=== PATIENT | female | born 1960 | race Caucasian/White ===

== ENCOUNTER 2018-01-05 00:13 | Outpatient (CLI) | payer MEDICARE, SELFPAY ==
--- NOTE | 2018-01-05 13:15 | DI.MAMMO_ITS ---
SYMPTOM/DIAGNOSIS: SCREENING, PREVENTATIVE HEALTH CARE.Z00.00 MAMMOGRAMS: Mammograms were interpreted according to the usual protocol including computer analysis with CAD system, tomosynthesis and C view imaging. Comparison is made with prior examinations. Breast density, category B. No masses or microcalcifications are seen. There is nothing to suggest malignancy. IMPRESSION: Negative mammogram. Routine screening is recommended. Category 1B. MQSA ASSESSMENT OF FINDINGS: Negative. Category 1. Patient will receive a letter notifying them of these results. BI-RADS category B. There are scattered areas of fibroglandular density.
== END 2018-01-05 00:33 ==
PROVIDERS: PCP Nurse Practitioner Family; Visit Provider Nurse Practitioner Family
DX: Z12.31 Encounter for screening mammogram for malignant neoplasm of breast (principal)
CPT/HCPCS: 77063; 77067

== ENCOUNTER 2018-07-29 09:50 | Outpatient (CLI) | payer MEDICARE, SELFPAY ==
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
[2018-07-29 11:51] LABS: Abs Immature Grans 0.01 k/cumm (0.0-0.09); Absolute Basophil Count 0.03 k/cumm (0.0-0.2); Absolute Lymphocyte Count 1.31 k/cumm (1.2-3.4); Absolute Monocyte Count 0.38 k/cumm (0.11-0.7); Absolute Neutrophil Count 2.08 k/cumm (1.2-6.7); Basophils % 0.7; HCT 37.8 % (36.0-46.0); HGB 12.2 g/dL (12.0-15.5); Immature Grans % 0.2; Lymphocytes % 32.7; Mean Corp. HGB Concentration 32.3 g/dL (32.0-36.0); Mean Corpuscular Hemoglobin 29.3 pg (27.0-33.0); Mean Corpuscular Volume 90.9 fL (80-95); Mean Platelet Volume 12.4 fL (8.0-11.0); Monocytes % 9.5; Neutrophils % 51.9; Platelet Count 180 x1000/uL (130-400); RBC 4.16 m/cumm (4.00-5.20); RBC Distribution Width 15.9 % (11.7-14.6); White Blood Cell Count 4.01 k/cumm (4.4-10.8)
[2018-07-29 12:13] LABS: ALT 20 U/L (12-78); AST 13 U/L (15-37); Albumin 3.8 g/dL (3.4-5.0); Alkaline Phosphatase 120 U/L (46-116); Anion Gap 5.7 mmol/L (3-11); BUN 17 mg/dL (7-18); Bilirubin, Total 0.4 mg/dL (0.2-1.0); CO2 30.3 mmol/L (21.0-32.0); CREATININE 0.91 mg/dL (0.55-1.02); Calcium 9.6 mg/dL (8.5-10.1); Chloride 105 mmol/L (98-107); Glucose 96 mg/dL (70-100); Potassium 4.1 mmol/L (3.5-5.1); Sodium 141 mmol/L (136-145); TSH (W/Ref FT4) 1.81 uIU/mL (0.358-3.74); Total Protein 6.7 g/dL (6.4-8.2)
== END 2018-07-29 10:10 ==
PROVIDERS: PCP Nurse Practitioner Family; Visit Provider Nurse Practitioner Family
DX: R06.09 Other forms of dyspnea (principal); R05 Cough; M79.671 Pain in right foot; M77.31 Calcaneal spur, right foot; Z87.81 Personal history of (healed) traumatic fracture; E53.8 Deficiency of other specified B group vitamins; R53.83 Other fatigue
CPT/HCPCS: 80053; 71046; 73610; 73630; 84443; 85025

== ENCOUNTER 2018-08-04 01:29 | Outpatient (CLI) | payer MEDICARE, SELFPAY ==
[2018-08-04] MEDS: Inhaler, Assist Device 1 EACH MC (09:00)
[2018-08-04] MEDS: Albuterol HFA 18 GM 200 PUFF INH IH (09:00)
--- NOTE | 2018-08-10 15:01 | PFT_ITS ---
PULMONARY FUNCTION TEST REPORT DATE OF SERVICE: August 04, 2018 REQUESTING PROVIDER: Sancho Taylor DNP, MATT Spirometry shows mild obstructive airways disease with no significant bronchodilator response. Lung volumes show no evidence of restriction. Diffusion capacity normal. Airways resistance elevated. IMPRESSION: Mild obstructive airways disease with no significant bronchodilator response. Clinical correlation recommended. EARLINE/lizeth D/
== END 2018-08-04 01:49 ==
PROVIDERS: PCP Nurse Practitioner Family; Visit Provider Nurse Practitioner Family
DX: R05 Cough (principal); R06.09 Other forms of dyspnea; R07.89 Other chest pain
CPT/HCPCS: 94060; 94150; 94726; 94729

== ENCOUNTER 2018-08-17 15:14 | Emergency (ER) | payer SELFPAY ==
[2018-08-17 15:25] VITALS: BP 191/73; PULSE 56; RESP 18; TEMP 36.6; O2SAT 97
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
[2018-08-17] MEDS: Ondansetron O.D.T. 4 MG TABEF PO (16:12)
[2018-08-17] MEDS: Acetaminophen 325 MG TAB 650 MG PO (16:12)
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
[2018-08-17 17:04] VITALS: BP 164/84; PULSE 52; RESP 16; TEMP 36.8; O2SAT 98
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
== END 2018-08-17 17:15 | disposition home or self-care (01) ==
PROVIDERS: Emergency Provider Nurse Practitioner Family; PCP Nurse Practitioner Family
DX: G44.319 Acute post-traumatic headache, not intractable (principal); S40.012A Contusion of left shoulder, initial encounter; S50.02XA Contusion of left elbow, initial encounter; V47.5XXA Car driver injured in collision with fixed or stationary object in traffic accident, initial encounter
CPT/HCPCS: 99284; 70450

== ENCOUNTER → 2018-12-07 08:31 | Outpatient (BNVA) | payer MEDICARE, SELFPAY | PROVIDERS: PCP Nurse Practitioner Family; Referring Provider Nurse Practitioner Family; Visit Provider Nurse Practitioner Gerontology | DX: R32 Unspecified urinary incontinence (principal); R31.29 Other microscopic hematuria; N32.81 Overactive bladder; I10 Essential (primary) hypertension; J44.9 Chronic obstructive pulmonary disease, unspecified; Z77.22 Contact with and (suspected) exposure to environmental tobacco smoke (acute) (chronic) | CPT/HCPCS: 99204; 99215 ==

== ENCOUNTER 2018-12-30 14:16 | Outpatient (REF) | payer MEDICARE, SELFPAY ==
[2018-12-30 13:16] LABS: ALT 23 U/L (14-59); AST 11 U/L (15-37); Albumin 3.9 g/dL (3.4-5.0); Alkaline Phosphatase 86 U/L (46-116); Anion Gap 6.4 mmol/L (3-11); BUN 16 mg/dL (7-18); Bilirubin, Total 0.4 mg/dL (0.2-1.0); CO2 30.6 mmol/L (21.0-32.0); CREATININE 1.01 mg/dL (0.55-1.02); Chloride 104 mmol/L (98-107); Glucose 79 mg/dL (70-100); Potassium 4.2 mmol/L (3.5-5.1); Sodium 141 mmol/L (136-145); Total Protein 6.7 g/dL (6.4-8.2)
[2018-12-30 13:22] LABS: Calcium 9.6 mg/dL (8.5-10.1)
== END 2018-12-30 14:36 ==
LOC: LBN 14:16
PROVIDERS: PCP Nurse Practitioner Family; Visit Provider Nurse Practitioner Family
DX: Z79.899 Other long term (current) drug therapy (principal); R69 Illness, unspecified
CPT/HCPCS: 80053

== ENCOUNTER 2019-01-18 00:46 | Outpatient (CLI) | payer MEDICARE, SELFPAY ==
--- NOTE | 2019-01-18 10:00 | DI.MAMMO_ITS ---
EXAM: MG MAMMO SCREENING CLINICAL HISTORY: screening. TECHNIQUE: Bilateral full field digital CC and MLO mammographic images were obtained with 3D tomosyn thesis and utilizing computer aided detection (CAD). COMPARISON: Priors available for comparison. FINDINGS: Masses/Architectural Distortion: None seen. Microcalcifications: No suspicious pleomorphic-type are seen. Breast Density - Category B - Scattered areas of fibroglandular density IMPRESSION: 1. No significant interval change with no specific features of malignancy noted. 2. Unless there is more urgent need, screening mammography is recommended, as per [employer] guidelines. ACR BI-RAD Category- 1 Negative A negative radiographic report should not delay biopsy if a dominant or clinically suspicious mass is present. Up to ten percent of cancers are not identified on mammography. A negative report may reinforce clinical impression. Adenosis and dense breasts may obscure an underlying neoplasm. False positive reports average 6 to 10%.
== END 2019-01-18 01:06 ==
PROVIDERS: PCP Nurse Practitioner Family; Visit Provider Nurse Practitioner Family
DX: Z12.31 Encounter for screening mammogram for malignant neoplasm of breast (principal)
CPT/HCPCS: 77063; 77067

== ENCOUNTER 2019-03-01 08:24 | Outpatient (REF) | payer MEDICARE, SELFPAY ==
[2019-03-01 11:45] LABS: HGB 12.5 g/dL (12.0-15.5); Mean Corp. HGB Concentration 32.9 g/dL (32.0-36.0); Mean Corpuscular Hemoglobin 29.3 pg (27.0-33.0); Mean Corpuscular Volume 89.2 fL (80-95); Mean Platelet Volume 11.5 fL (8.0-11.0); Platelet Count 228 x1000/uL (130-400); RBC 4.26 m/cumm (4.00-5.20); RBC Distribution Width 15.9 % (11.7-14.6); White Blood Cell Count 4.65 k/cumm (4.4-10.8)
[2019-03-01 12:25] LABS: Vitamin D 25 Total 47.5 ng/ml (30-100)
[2019-03-01 12:32] LABS: ALT 16 U/L (14-59); AST 11 U/L (15-37); Albumin 3.8 g/dL (3.4-5.0); Alkaline Phosphatase 105 U/L (46-116); Anion Gap 7.7 mmol/L (3-11); BUN 24 mg/dL (7-18); Bilirubin, Total 0.4 mg/dL (0.2-1.0); CO2 29.3 mmol/L (21.0-32.0); CREATININE 1.07 mg/dL (0.55-1.02); Calculated LDL 119 mg/dL; Chloride 105 mmol/L (98-107); Cholesterol 189 mg/dL (50-200); Estimated GFR 53.05 (mL/min/1.73m2); Glucose 80 mg/dL (70-100); HDL Cholesterol 54 mg/dL (40-60); Potassium 4.2 mmol/L (3.5-5.1); Sodium 142 mmol/L (136-145); Total Protein 6.7 g/dL (6.4-8.2); Triglyceride 80 mg/dL (30-150); Vitamin B12 682 pg/mL (193-986)
== END 2019-03-01 08:44 ==
LOC: NCHCN 08:24
PROVIDERS: PCP Nurse Practitioner Family; Visit Provider Nurse Practitioner Family
DX: I10 Essential (primary) hypertension (principal); E55.9 Vitamin D deficiency, unspecified; D51.0 Vitamin B12 deficiency anemia due to intrinsic factor deficiency; R53.83 Other fatigue; Z51.81 Encounter for therapeutic drug level monitoring
CPT/HCPCS: 80053; 80061; 82306; 85027; 82607

== ENCOUNTER 2019-06-01 08:45 | Outpatient (REF) | payer MEDICARE, SELFPAY ==
[2019-06-01 12:54] LABS: Anion Gap 8.1 mmol/L (3-11); BUN 18 mg/dL (7-18); CO2 28.9 mmol/L (21.0-32.0); CREATININE 0.97 mg/dL (0.55-1.02); Calcium 9.2 mg/dL (8.5-10.1); Chloride 107 mmol/L (98-107); Glucose 83 mg/dL (74-106); Potassium 3.9 mmol/L (3.5-5.1); Sodium 144 mmol/L (136-145); TSH (W/Ref FT4) 1.84 uIU/mL (0.36-3.74)
[2019-06-01 12:56] LABS: Bacteria Few HPF (Negative); C & S Indicated? No/Sq. Contamination; Crystals Negative HPF (Negative); Epithelial Cells Many HPF (Negative); Mucus Negative (Negative)
[2019-06-01 14:19] LABS: COMMENT (LAB VIEW ONLY) 81.09 mg/dL; Microalb ug/mg Crea 9.5 ug/mg Cr
[2019-06-01 15:38] LABS: PROTEIN 9.7 mg/dL
[2019-06-01 15:41] LABS: COMMENT (LAB VIEW ONLY) 80.25 mg/dL; Prot/Crea Ur Ratio 0.12
== END 2019-06-01 09:05 ==
LOC: NCHCN 08:45
PROVIDERS: PCP Nurse Practitioner Family; Visit Provider Nurse Practitioner Family
DX: E03.9 Hypothyroidism, unspecified (principal); I10 Essential (primary) hypertension; R31.9 Hematuria, unspecified
CPT/HCPCS: 80048; 81015; 82043; 82565; 82570; 84156; 84443

== ENCOUNTER → 2019-06-07 13:17 | Outpatient (BNVA) | payer MEDICARE, SELFPAY | PROVIDERS: PCP Nurse Practitioner Family; Referring Provider Nurse Practitioner Family; Visit Provider Nurse Practitioner Gerontology | DX: R31.29 Other microscopic hematuria (principal); N32.81 Overactive bladder | CPT/HCPCS: 81003; 99213 ==

== ENCOUNTER 2019-08-17 12:53 | Outpatient (REF) | payer MEDICARE, SELFPAY ==
[2019-08-17 15:22] LABS: Anion Gap 5.8 mmol/L (3-11); BUN 17 mg/dL (7-18); CO2 31.2 mmol/L (21.0-32.0); CREATININE 0.97 mg/dL (0.55-1.02); Calcium 9.3 mg/dL (8.5-10.1); Chloride 106 mmol/L (98-107); Estimated GFR 59.19 (mL/min/1.73m2); Glucose 86 mg/dL (74-106); Potassium 3.7 mmol/L (3.5-5.1); Sodium 143 mmol/L (136-145)
== END 2019-08-17 13:13 ==
LOC: NCHCN 12:53
PROVIDERS: PCP Nurse Practitioner Family; Visit Provider Nurse Practitioner Family
DX: I10 Essential (primary) hypertension (principal)
CPT/HCPCS: 80048

== ENCOUNTER 2020-02-18 14:47 | Outpatient (REF) | payer MEDICARE, SELFPAY ==
[2020-02-18 19:59] LABS: Abs Immature Grans 0.02 10^3/uL (0.0-0.06); Absolute Basophil Count 0.04 10^3/uL (0.0-0.2); Absolute Eosinophil Count 0.17 10^3/uL (0.0-0.7); Absolute Lymphocyte Count 1.69 10^3/uL (1.2-3.4); Absolute Monocyte Count 0.36 10^3/uL (0.1-0.8); Absolute Neutrophil Count 2.88 10^3/uL (1.2-6.7); Basophils % 0.8; Eosinophils % 3.3; HCT 38.7 % (36.0-46.0); HGB 12.2 g/dL (11.2-15.7); Immature Grans % 0.4; Lymphocytes % 32.8; MCH 29.8 pg (27.0-33.0); MCHC 31.5 % (32.0-36.0); MCV 94.4 fL (80-95); MPV 11.8 fL (8.0-11.0); Neutrophils % 55.7; Nucleated RBC 0 %; Platelet Count 217 10^3/uL (130-400); RDW 14.4 % (11.7-14.6); RDW-SD 49.5 fL; WBC 5.16 10^3/uL (4.4-10.8)
[2020-02-18 20:08] LABS: Bilirubin Negative (Negative); Blood Negative (Negative); Clarity Clear (Clear); Glucose Negative (Negative); Ketones Negative (Negative); Leukocyte Esterase Negative (Negative); Nitrite Negative (Negative); Specific Gravity 1.025 (1.005-1.025); Urobilinogen 0.2 EU/dL (Up TO 0.2)
[2020-02-18 20:24] LABS: ALT 22 U/L (14-59); AST 14 U/L (15-37); Albumin 3.8 g/dL (3.4-5.0); Alkaline Phosphatase 136 U/L (46-116); Anion Gap 7.6 mmol/L (3-11); BUN 18 mg/dL (7-18); Bilirubin, Total 0.4 mg/dL (0.2-1.0); CO2 29.4 mmol/L (21.0-32.0); Chloride 105 mmol/L (98-107); Estimated GFR 57.15 (mL/min/1.73m2); Glucose 98 mg/dL (74-106); Potassium 4.4 mmol/L (3.5-5.1); Sodium 142 mmol/L (136-145); Total Protein 6.7 g/dL (6.4-8.2)
[2020-02-18 20:36] LABS: Hemoglobin A1C 5.5 % (<5.7)
[2020-02-18 20:37] LABS: Bacteria Moderate HPF (Negative); C & S Indicated? C&S Done As Ordered; Casts Negative LPF (Negative); Crystals Negative HPF (Negative); Epithelial Cells Moderate HPF (Negative); Mucus Trace (Negative)
== END 2020-02-18 15:07 ==
LOC: NCHCN 14:47
PROVIDERS: PCP Nurse Practitioner Family; Visit Provider Nurse Practitioner Family
DX: R31.9 Hematuria, unspecified (principal); Z51.81 Encounter for therapeutic drug level monitoring; D51.0 Vitamin B12 deficiency anemia due to intrinsic factor deficiency
CPT/HCPCS: 80053; 81003; 81015; 83036; 85025; 87086

== ENCOUNTER 2020-03-07 14:24 | Outpatient (REF) | payer MEDICARE, SELFPAY ==
[2020-03-11 01:49] LABS: Patient Race White; SARS-CoV-2 RNA Undetected (Undetected); SARS-CoV-2 Specimen Source Nasal
== END 2020-03-07 14:44 ==
LOC: NCHCN 14:24
PROVIDERS: PCP Nurse Practitioner Family; Visit Provider Nurse Practitioner Family
DX: Z20.828 Contact with and (suspected) exposure to other viral communicable diseases (principal)
CPT/HCPCS: U0003

== ENCOUNTER → 2020-03-15 11:37 | Outpatient (BNVA) | payer MEDICARE, SELFPAY | PROVIDERS: PCP Nurse Practitioner Family; Referring Provider Nurse Practitioner Family; Visit Provider Surgery | DX: R11.0 Nausea (principal); R04.2 Hemoptysis; R06.02 Shortness of breath; I10 Essential (primary) hypertension; Z82.49 Family history of ischemic heart disease and other diseases of the circulatory system; E66.01 Morbid (severe) obesity due to excess calories; J44.9 Chronic obstructive pulmonary disease, unspecified | CPT/HCPCS: 99203; 99214 ==

== ENCOUNTER 2020-03-28 00:39 | Outpatient (CLI) | payer MEDICARE, SELFPAY ==
--- NOTE | 2020-03-28 07:00 | DI.NM_ITS ---
APPROVED REPORT Exam: Pharmacologic Patient Location: Out-Patient Room/Bed: Stress Nurse: Qiana Davenport RN BMI: 48.25 Baseline Rhythm: Sinus Bradycardia, 1st Degree Heart Block Indications: Shortness of breath on exertion, Strong family history, Hypertension. Medical History Medical History: GERD, Depression, Anxiety, Fatigue, Fibromyalgia, Murmur, Reactive airway disease, H TN, Hyppthyroid, Morbid obesity, Pernicious anemia, PTSD. Cardiac Medications: Albuterol, Lisinopril, Pantoprazole, Sucralfate. Allergies: Keflex, Clarithromycin, Penicillins, Vancomycin, Macrolide antibiotics, Metoprolol. Cardiac Risk Factors: FHX of CAD, HTN, Obesity Previous Cardiac Procedures: None. Pretest Chest Pain Characteristics: 04/30 nonexertional epigastric pain. Exercise History: Sedentary Physical Disabilities: Knees Lung Sounds: Clear to auscultation Heart Sounds: Murmur Stress Test Details Test: Exercise stress converted to pharmacologic stress due to failure to obtain a diagnostic stress test. Reason for pharmacologic stress test: physical limitation. Nuclear Acquisition: Rest Tc-99m/Stress Tc-99m 1 day Rest Isotope: Tc-99m Sestamibi. Dose: 15.1 Date: 03/28/2020 Injection Time: 0845 Stress Isotope: Tc-99m Sestamibi. Dose: 43.2 Date: 03/28/2020 Injection Time: 1015 HR Resting HR Supine: 56 bpm Max Heart Rate (APMHR): 163.984295 bpm Resting HR Standin bpm Target HR (85% APMHR): 138.854428 bpm Max HR Achieved: 124 bpm % of APMHR: 76.07 Recovery HR: 75 bpm HR response to stress: Abnormal HR response to stress BP Resting BP Supine: 152/98 mmHg Resting BP Standin/104 mmHg Max BP: 158/102 mmHg Recovery BP: 152/94 mmHg BP response to stress: Normal blood pressure response to stress. Comment: Hypertensive at baseline. ECG Resting ECst degree AV block Ectopy: None. Stress ECG: Sinus Tachycardia ST Change: No significant ST segment changes noted. Arrhythmia: One couplet noted. Recovery ECG: Sinus Rhythm Recovery ST Change: No significant ST segment changes. Recovery Arrhythmia: None. Clinical Reason for Termination: Fatigue, Dyspnea Stress Symptoms: General Fatigue, Dyspnea, Nausea, Epigastric pain Exercise duration: 05 min40 sec Highest Stage Reached: Stage 2: 2.5 mph at 12% grade. Exercise capacity: 7.05 METs Stress ECG Conclusion 1. The patient exercised for 5 minutes and 40 seconds (7 METS). The patient was unable to reach targ et heart rate and was converted to a pharmacological stress test. 2. There were no symptoms suggestive of ischemia. 3. The EKG portion of this exam is nondiagnostic. Stress Test Summary STAGE Time (mins) Speed (mph) Grade (%) HR BP SYMPTOMS METS Supine 56 152/98 Standing 63 148/104 1 3 1.7 10 102 150/100 4.6 1 min post Lexiscan injection 88 158/102 3 min post Lexiscan injection 79 154/96 6 min post Lexiscan injection 75 152/94 MPI Conclusion Patient's ejection fraction was 55% with stress. There were no wall motion abnormalities. There was no evidence of ischemia on the imaging portion of the exam. This represents a normal SPECT stress test. Radiologist Interpretation Radiologist agrees with [employer]'s Interpretation. Radiologist Interpretation by: Rashawn Javier MD Interpretation Date/Time: 03/28/2020 14:07:13
[2020-03-28] MEDS: Regadenoson 0.4 MG/5 ML SYR IVP (10:40)
== END 2020-03-28 00:59 ==
PROVIDERS: PCP Nurse Practitioner Family; Visit Provider Surgery
DX: R06.02 Shortness of breath (principal); Z82.49 Family history of ischemic heart disease and other diseases of the circulatory system; I10 Essential (primary) hypertension; E66.01 Morbid (severe) obesity due to excess calories
CPT/HCPCS: 78452; 93016; 93018; 93017; J2785

== ENCOUNTER 2020-04-03 03:25 | Outpatient (CLI) | payer MEDICARE, SELFPAY ==
[2020-04-04 17:31] LABS: COVID-19 RT-PCR UVMMC Result Negative (Negative)
== END 2020-04-03 03:45 ==
PROVIDERS: PCP Nurse Practitioner Family; Visit Provider Surgery
DX: Z11.59 Encounter for screening for other viral diseases (principal); Z01.818 Encounter for other preprocedural examination
CPT/HCPCS: U0003

== ENCOUNTER 2020-04-06 11:03 | Day surgery (SDC) | payer MEDICARE, SELFPAY ==
[2020-04-06 11:44] VITALS: BP 129/69; PULSE 63; RESP 18; TEMP 36.6; O2SAT 97
[2020-04-06] MEDS: Lactated Ringers 1,000 ML 80 ML IV (12:11)
--- NOTE | 2020-04-06 12:18 | W.PM.DSUDISC ---
Discharge Plan Disposition Patient Disposition: HOME Condition: Good Discharge Details Reason For Visit: colon scope Attending Provider: Neris Leung Primary Care Provider: Sancho Taylor Home Meds and New Rx's Prescriptions: Continued Spiriva with HandiHaler 18 mcg capsule, w/inhalation device 1 cap IH DAILY RF: 0 albuterol sulfate [Ventolin HFA] 90 mcg/actuation HFA aerosol inhaler 2 puff IH Q6H PRNRF: 0 gabapentin 800 mg tablet 800 mg PO DAILY RF: 0 cyanocobalamin (vitamin B-12) 1,000 mcg/mL kit 100 mcg SC QMONTH RF: 0 lorazepam 0.5 mg tablet 0.5 mg PO TID PRNRF: 0 levothyroxine 125 mcg capsule 125 mcg PO DAILY RF: 0 lidocaine [Lidoderm] 5 % adhesive patch,medicated 1 patch TP DAILY RF: 0 diclofenac sodium 75 mg tablet,delayed release (DR/EC) 75 mg PO BID RF: 0 tizanidine 2 mg capsule 2 mg PO TID PRNRF: 0 trazodone 50 mg tablet 100 mg PO QHS PRNRF: 0 celecoxib [Celebrex] 100 mg capsule 100 mg PO BID Qty: 60 RF: 0 pantoprazole 40 mg tablet,delayed release (DR/EC) 40 mg PO DAILY RF: 0 sucralfate [Carafate] 1 gram tablet 1 g PO QACHS RF: 0 mupirocin 2 % ointment 1 applic topical BID RF: 0 fluvoxamine 150 mg capsule,extended release 24hr 150 mg PO QHS RF: 0 lisinopril 20 mg tablet 20 mg PO DAILY RF: 0 cholecalciferol (vitamin D3) 50 mcg (2,000 unit) capsule 50 mcg PO DAILY RF: 0 chlorthalidone 25 mg tablet 25 mg PO DAILY RF: 0 Discharge Instructions Additional Instructions: Findings:Moderate esophagitis 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 Try to limits: soda pop/any carbonated beverages, caffeine (including tea & chocolate), and acidic foods, (tomatoes, citrus, onions, peppermints) spicy foods. Do not lie down for 30 minutes after eating, and do not eat 2 hours prior to bedtime. Avoid wearing tight fitting clothing/ belts -Continue PPI & carafate -stop voltaren consider have sleep study done if not have had one done in the last 5yrs. Follow up: 2 wks Please call if you develop: fevers >101.5 Nausea or Vomiting Abdominal pain that is not transient DAY SURGERY UNIT POST COLONOSCOPY INSTRUCTIONS 1. Because there will be medication in your system for the next 24 hours, you may feel a little sleepy. Your coordination will be affected. Therefore: a. Do not drive or operate dangerous equipment for 24 hours. b. Do not drink alcohol beverages for 24 hours (not even beer). c. Plan to go home and rest for the day. 2. Generally there are no restrictions on your activity after a day or so has gone by, but you may feel a bit fatigued for a few days. 3 After you arrive home you may have a light meal and return to a normal diet as you can tolerate it without feeling sick to your stomach. 4. After surgery, you may feel pain or discomfort. This should be only transient, but if it persists please contact your doctor. 5. If there are any questions regarding the findings of your procedure, please feel free to contact your doctor. 6. If you are unable to contact your doctor with a problem, contact the hospital at [phone]. 7. Continue all your regular medications unless directed otherwise. I understand the above instructions and have no questions. Signature of Patient or Responsible Adult Escort Date/Time Name of Responsible Adult Escort Signature of Nurse Date/Time Activity:: No lifting over 20 pounds or strenuous activity x24 hours. Diet:: Small light meals x24 hours so she is Discharge Orders Discharge Orders: Discharge Order (Routine); Ordered 04/06/20 Ordered By: Neris Leung
--- NOTE | 2020-04-06 12:45 | STOM_PTH ---
PATIENT: JuneMadhuri LOC: [facility] U#:[id number] AGE/SX: 59/F ROOM: RE04/06/[address]: Neris Leung : 1960 BED: DIS: 04/06/2020 SPEC #: [id number] RECD: 04/06/20 17:32 STATUS: TINA REQ #: [id number] RICARDO: 04/06/20 12:[address]: Neris Leung DEPT: Surgical Specimen RECD BY: Ada Acevedo ENTERED: 04/06/20 17:40 SP TYPE: STOMACH OTHR DR: Sancho Taylor Tissues: 1 - BIOPSY BOWEL 2 - STOMACH BIOPSY 3 - STOMACH BIOPSY 4 - ESOPHAGUS BIOPSY 5 - ESOPHAGUS BIOPSY 6 - ESOPHAGUS BIOPSY Procedures: GROSS AND MICRO LEVEL 4 Comments: [id number]
--- NOTE | 2020-04-06 13:04 | ENDO_ITS ---
Date of service: 04/06/20 Time of Service: 13:04 Endoscopy Report DATE OF PROCEDURE: 04/06/20 PRE-OP DIAGNOSIS: gerd/noncardiac chest pain ANESTHESIA: GETA ESTIMATED BLOOD LOSS: 1 PATHOLOGY: other COMPLICATIONS: None DISPOSITION: no change PROCEDURE DESCRIPTION: After informed consent was obtained the patient was take to the procedure room and placed in a supine position. Monitors were applied and a time out was done. The patients name, date of , procedure type, allergies to medications and metal in their body was reviewed. A bite block was placed and the patient was sedated. Once sedated and comfortable the gastroscope was advanced through the oropharynx which was grossly normal into the esophagus. The proximal and mid-esophagus were nl. In the distal esophagus there was moderate esophagitis. The Z line is irregular- w/ x3 very irreg tongues- one is 2cm. there are 3-4 discrete islands. Changes noted under NBI; Obvious Jennings's. The scope was advanced into the stomach and through the pylorus into the 3rd portion of the duodenum. The duodenum was noted to be nl. Biopsies were done-all specimens are retrieved, and no bleeding is noted. The scope was retracted back into the stomach and biopsies were done to rule out H. pylori. There were no ulcers, possibly some mild gastritis in the dependent portion of the stomach. There are also multiple polyps within the body of the stomach. A insurance account representative sample was chosen, and sampled. The scope was retroflexed. The cardia and fundus were noted to be normal. There slight a hiatal hernia/patulousness of the hiatus noted. The scope was retracted back into the esophagus and biopsies were done of the GE junction to rule out Araujo ett's. The GE junction was at 35 cm. The scope was removed and the patient was woken up and taken back to [facility] in stable condition. Follow up: 2 wks
[2020-04-06 13:37] VITALS: BP 137/67; PULSE 66; RESP 18; TEMP 36.4; O2SAT 97
== END 2020-04-06 14:14 | disposition home or self-care (01) ==
PROVIDERS: PCP Nurse Practitioner Family; Visit Provider Surgery
PROC: 0DJ68ZZ Inspection of Stomach, Via Natural or Artificial Opening Endoscopic (ICD-10-PCS; CPT 43235; principal; 2020-04-06 11:45)
DX: K21.00 Gastro-esophageal reflux disease with esophagitis, without bleeding (principal); R07.89 Other chest pain; K31.89 Other diseases of stomach and duodenum; D13.1 Benign neoplasm of stomach; K22.8 Other specified diseases of esophagus; K29.70 Gastritis, unspecified, without bleeding; K44.9 Diaphragmatic hernia without obstruction or gangrene; E66.01 Morbid (severe) obesity due to excess calories; J44.9 Chronic obstructive pulmonary disease, unspecified; I10 Essential (primary) hypertension; Z68.42 Body mass index [BMI] 45.0-49.9, adult
CPT/HCPCS: 43239; 88305; J2001; J2704

== ENCOUNTER 2020-04-12 09:10 | Outpatient (REF) | payer MEDICARE, SELFPAY ==
--- OUTSIDE RECORDS SUMMARY | 2020-04-12 09:12 | XMS_ITS ---
:1960 Author Care Team Providers Name Role Phone [facility] Primary Care Provider [phone] NASRIN SÁNCHEZ DNP [employer] CLERK - C Primary Care Provider [phone] AUBREE BALES MD [employer] Unavailable Allergies Code Code System Name Reaction Severity Status Onset 20360530 RxNorm Biaxin ? ? Active ? 20300925 RxNorm Keflex ? ? Active ? Macrolide ? ? Active ? Antibiotics 6918 RxNorm Metoprolol ? ? Active ? Penicillins ? ? Active ? 44055 RxNorm Vancomycin ? ? Active ? Medications Name Status Start Date Stop Date ? ? Advair HFA 230 mcg-21 mcg/actuation aerosol inhaler Active ? Not available Inhale 2 puffs twice a day by inhalation route. Amitiza 8 mcg capsule Completed ? 10/15/2019 Take 1 capsule twice a day by oral route. apple cider vinegar Completed ? 10/15/2019 1 tab daily Cyanacobalamin 1,000 mcg/mL injection solution Active ? Not available Inject 1 mL every month by subcutaneous route. diclofenac sodium 75 mg tablet,delayed release Active ? Not available Take 1 tablet twice a day by oral route. gabapentin 800 mg tablet Active ? Not aubree ilable 1 tab in AM, 2 tabs in HS Ahhekpbyutu-Yznck-DJG Complex Completed ? 1 tab daily levothyroxine 125 mcg tablet Active ? Not available Take 1 tablet every day by oral route. Lidoderm 5 % topical patch Active ? Not a vailable APPLY 1 PATCH BY TRANSDERMAL ROUTE ONCE DAILY (MAY WEAR UP TO 1 2HOURS.) lisinopril 20 mg tablet Active ? Not avai lable Take 1 tablet every day by oral route. lorazepam 0.5 mg tablet Active ? Not avai lable Take 2 tablets 3 times a day by oral route. Prozac 40 mg capsule Completed ? 10/15/2019 Take 2 capsules every day by oral route. Spiriva with HandiHaler 18 mcg and inhalation capsules Active ? Not available Inhale 1 capsule every day by inhalation route. tizanidine 2 mg tablet Completed ? 0 Take 1 tablet 3 times a day by oral route. trazodone 50 mg tablet Active ? Not avail able Take 1.5 tablets every day by oral route at bedtime. turmeric Completed ? 10/15/2019 500mg daily Valtrex 500 mg tablet Completed ? 10/15/2019 Take 1 tablet every day by oral route. Ventolin HFA 90 mcg/actuation aerosol inhaler Active ? Not available Inhale 2 puffs every 4-6 hours by inhalation route. Vitamin D 2,000 unit capsule Active ? Not available Take 1 capsule every day by oral route. Problems Name Status Onset Date Source ? Hypothyroidism Active 12/28/2018 ? Vitamin D Deficiency Active 12/28/2018 ? Obesity Active 12/28/2018 ? Pernicious Anemia Active 12/28/2018 ? Mixed Anxiety and Depressive Disorder Active 12/28/2018 ? Posttraumatic Stress Disorder Active 12/28/2018 ? Tinnitus Active 12/28/2018 ? Hypertensive Disorder Active 12/28/2018 ? Chronic Obstructive Lung Disease Unknown 12/28/2018 ? Irritable Bowel Syndrome Active 12/28/2018 ? Localized Scleroderma Active 12/28/2018 ? Alopecia Areata Active 12/28/2018 ? Hand Joint Pain Active 12/28/2018 ? Foot Joint Pain Active 12/28/2018 ? Chronic Back Pain Active 12/28/2018 ? Fibromyalgia Active 12/28/2018 ? Cramp in Lower Limb Active 12/28/2018 ? Dizziness Active 12/28/2018 ? Fatigue Active 12/28/2018 ? Dyspnea Unknown 12/28/2018 ? Cough Active 12/28/2018 ? Incontinence Active 12/28/2018 ? Serum Creatinine Raised Active 12/28/2018 ? Anti-nuclear Factor Positive Active 12/28/2018 ? Asthma Active 12/31/2018 ? Procedures None recorded. Results Lab Results None recorded. Past Encounters 10/15/2019 Asthma Aubree Bales MD: [address] [place] [address] Dr gricel Lilly [address] [place] [phone], Ph. 02/05/2019 Asthma Aubree Bales MD: [address] [place] [address] Dr gricel Lilly , [place] [phone], Ph. 12/31/2018 Asthma Aubree Bales MD: [address] [place] [address] Dr mons[address], [place] [phone], Ph. Social History Tobacco Smoking Status Never Smoker Vaccine List Vaccine Type influenza, injectable, quadrivalent 01/27/2018 12/30/2018 Tdap 06/05/2009 Plan of Care Reminders Provider Appointments None ? ? recorded. Lab None ? ? recorded. Referral None ? ? recorded. Procedures None ? ? recorded. Surgeries None ? ? recorded. Imaging None ? ? recorded. Vitals 10/15/2019 09:30AM Office 15 Height Weight BMI Blood Pressure 162.56 cm 128/70 mm[Hg] 02/05/2019 12:00PM Office 30 Height Weight BMI Blood Pressure 162.56 cm 122/66 mm[Hg] 12/31/2018 11:15AM New Patient 45 Height Weight BMI Blood Pressure 162.56 cm 116 kg 43.9 kg/m2 142/78 mm[Hg]
[2020-04-12 14:06] LABS: Abs Immature Grans 0.01 10^3/uL (0.0-0.06); Absolute Basophil Count 0.03 10^3/uL (0.0-0.2); Absolute Eosinophil Count 0.18 10^3/uL (0.0-0.7); Absolute Lymphocyte Count 1.32 10^3/uL (1.2-3.4); Absolute Monocyte Count 0.38 10^3/uL (0.1-0.8); Absolute Neutrophil Count 3.26 10^3/uL (1.2-6.7); Basophils % 0.6; Eosinophils % 3.5; HCT 40.8 % (36.0-46.0); HGB 13.2 g/dL (11.2-15.7); Immature Grans % 0.2; Lymphocytes % 25.5; MCH 29.3 pg (27.0-33.0); MCHC 32.4 % (32.0-36.0); MCV 90.7 fL (80-95); Monocytes % 7.3; Neutrophils % 62.9; Nucleated RBC 0 %; Platelet Count 211 10^3/uL (130-400); RDW 13.2 % (11.7-14.6); RDW-SD 43.9 fL; WBC 5.18 10^3/uL (4.4-10.8)
[2020-04-12 14:39] LABS: BUN 21 mg/dL (7-18); Calcium 9.4 mg/dL (8.5-10.1); Chloride 104 mmol/L (98-107); Glucose 90 mg/dL (74-106); Potassium 3.6 mmol/L (3.5-5.1); Sodium 142 mmol/L (136-145); TSH (W/Ref FT4) 0.88 uIU/mL (0.36-3.74); Vitamin B12 1283 pg/mL (193-986)
== END 2020-04-12 09:30 ==
LOC: NCHCN 09:10
PROVIDERS: PCP Nurse Practitioner Family; Visit Provider Nurse Practitioner Family
DX: E03.9 Hypothyroidism, unspecified (principal); I10 Essential (primary) hypertension; D51.0 Vitamin B12 deficiency anemia due to intrinsic factor deficiency
CPT/HCPCS: 80048; 82607; 84443; 85025

== ENCOUNTER → 2020-04-19 12:25 | Outpatient (BNVA) | payer MEDICARE, SELFPAY | PROVIDERS: PCP Nurse Practitioner Family; Referring Provider Nurse Practitioner Family; Visit Provider Surgery | DX: K21.9 Gastro-esophageal reflux disease without esophagitis (principal); K29.60 Other gastritis without bleeding | CPT/HCPCS: 99212; 99442 ==

== ENCOUNTER 2020-05-09 09:33 | Outpatient (REF) | payer MEDICARE, SELFPAY ==
[2020-05-09 14:41] LABS: Anion Gap 8.5 mmol/L (3-11); BUN 17 mg/dL (7-18); CO2 28.5 mmol/L (21.0-32.0); CREATININE 1.22 mg/dL (0.55-1.02); Calcium 9.3 mg/dL (8.5-10.1); Chloride 105 mmol/L (98-107); Estimated GFR 45.43 (mL/min/1.73m2); Glucose 87 mg/dL (74-106); Potassium 3.8 mmol/L (3.5-5.1); Sodium 142 mmol/L (136-145); Vitamin B12 797 pg/mL (193-986)
== END 2020-05-09 09:53 ==
LOC: NCHCN 09:33
PROVIDERS: PCP Nurse Practitioner Family; Visit Provider Nurse Practitioner Family
DX: I10 Essential (primary) hypertension (principal); D51.0 Vitamin B12 deficiency anemia due to intrinsic factor deficiency
CPT/HCPCS: 80048; 82607

== ENCOUNTER 2020-06-02 13:24 | Outpatient (REF) | payer MEDICARE, SELFPAY ==
[2020-06-02 19:23] LABS: HCT 37.7 % (36.0-46.0); HGB 12.2 g/dL (11.2-15.7); MCH 29.8 pg (27.0-33.0); MCHC 32.4 % (32.0-36.0); MCV 92.2 fL (80-95); MPV 11.7 fL (8.0-11.0); Platelet Count 219 10^3/uL (130-400); RBC 4.09 10^6/uL (3.93-5.22); RDW 15.1 % (11.7-14.6); RDW-SD 51.2 fL; WBC 5.15 10^3/uL (4.4-10.8)
[2020-06-02 20:01] LABS: Anion Gap 5.3 mmol/L (3-11); BUN 16 mg/dL (7-18); C-Reactive Protein 0.18 mg/dL (0.0-0.3); CO2 30.7 mmol/L (21.0-32.0); Calcium 9.2 mg/dL (8.5-10.1); Chloride 106 mmol/L (98-107); Estimated GFR 57.15 (mL/min/1.73m2); Ferritin 20 ng/mL (8-252); Glucose 98 mg/dL (74-106); Potassium 4.3 mmol/L (3.5-5.1); Sodium 142 mmol/L (136-145); TSH (W/Ref FT4) 6.34 uIU/mL (0.36-3.74); Vitamin B12 614 pg/mL (193-986)
[2020-06-03 02:14] LABS: ESR 18 mm/hr (<or=30)
== END 2020-06-02 13:25 | disposition home or self-care (01) ==
LOC: NCHCN 13:24
PROVIDERS: PCP Nurse Practitioner Family; Visit Provider Nurse Practitioner Family
DX: I10 Essential (primary) hypertension (principal); Z79.899 Other long term (current) drug therapy; D51.0 Vitamin B12 deficiency anemia due to intrinsic factor deficiency; E03.9 Hypothyroidism, unspecified
CPT/HCPCS: 80048; 85027; 85652; 82607; 82728; 84439; 84443; 86140

== ENCOUNTER 2020-09-07 11:07 | Outpatient (REF) | payer MEDICARE, SELFPAY ==
[2020-09-07 16:17] LABS: HCT 39.5 % (36.0-46.0); HGB 13.2 g/dL (11.2-15.7); MCH 29.9 pg (27.0-33.0); MCHC 33.4 % (32.0-36.0); MCV 89.6 fL (80-95); MPV 12.4 fL (8.0-11.0); Platelet Count 209 10^3/uL (130-400); RBC 4.41 10^6/uL (3.93-5.22); RDW 13.4 % (11.7-14.6); RDW-SD 44.4 fL; WBC 4.79 10^3/uL (4.4-10.8)
[2020-09-07 16:49] LABS: Anion Gap 9.1 mmol/L (3-11); BUN 17 mg/dL (7-18); CO2 28.9 mmol/L (21.0-32.0); CREATININE 0.9 mg/dL (0.55-1.02); Calcium 9.1 mg/dL (8.5-10.1); Chloride 106 mmol/L (98-107); Glucose 96 mg/dL (74-106); Potassium 4.2 mmol/L (3.5-5.1); Sodium 144 mmol/L (136-145); Vitamin B12 609 pg/mL (193-986)
== END 2020-09-07 11:08 | disposition home or self-care (01) ==
LOC: NCHCN 11:07
PROVIDERS: PCP Nurse Practitioner Family; Visit Provider Nurse Practitioner Family
DX: I10 Essential (primary) hypertension (principal); D51.0 Vitamin B12 deficiency anemia due to intrinsic factor deficiency; E03.9 Hypothyroidism, unspecified; Z51.81 Encounter for therapeutic drug level monitoring
CPT/HCPCS: 80048; 85027; 82607; 84443

== ENCOUNTER 2020-11-24 10:51 | Outpatient (REF) | payer MEDICARE, SELFPAY ==
--- NOTE | 2020-11-24 08:15 | PAPFT_PTH ---
PATIENT: Madhuri Kolb LOC: [facility] U#:[id number] AGE/SX: 60/F ROOM: RE11/24/[address]: MARTÍN Cheek : 1960 BED: DIS: 11/24/2020 SPEC #: [id number] RECD: 11/24/20 12:39 STATUS: TINA REShakir #: [id number] RICARDO: 11/24/20 08:[address]: Tammy Dyeks DEPT: [facility] Cytology RECD BY: Ebonie Cortes ENTERED: 11/24/20 12:40 SP TYPE: PAPFT OTHR DR: Sancho Taylor Tissues: 1 - CX/ENDOCX FOR PAP SMEARS Procedures: PAP THIN PREP/[facility] Screening HPV DNA PROBE Comments: [id number]
== END 2020-11-24 10:52 | disposition home or self-care (01) ==
LOC: LBN 10:51
PROVIDERS: PCP Nurse Practitioner Family; Visit Provider Nurse Practitioner Family
DX: Z12.4 Encounter for screening for malignant neoplasm of cervix (principal); Z11.51 Encounter for screening for human papillomavirus (HPV); Z01.419 Encounter for gynecological examination (general) (routine) without abnormal findings
CPT/HCPCS: 88142; 87624

== ENCOUNTER 2021-01-07 15:55 | Emergency (ER) | payer MEDICARE, MEDICAID, SELFPAY ==
[2021-01-07 16:06] VITALS: BP 154/99; PULSE 70; RESP 22; TEMP 37; O2SAT 99
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
--- NOTE | 2021-01-07 16:11 | NUR.NOTE ---
Pt too distressed and unwilling to answer any further questionsNursing Note:
[2021-01-07 17:08] LABS: Abs Immature Grans 0.03 10^3/uL (0.0-0.06); Absolute Basophil Count 0.04 10^3/uL (0.0-0.2); Absolute Eosinophil Count 0.13 10^3/uL (0.0-0.7); Absolute Lymphocyte Count 1.47 10^3/uL (1.2-3.4); Absolute Monocyte Count 0.33 10^3/uL (0.1-0.8); Basophils % 0.7; Eosinophils % 2.3; HCT 37.8 % (36.0-46.0); HGB 12.3 g/dL (11.2-15.7); Immature Grans % 0.5; Lymphocytes % 25.8; MCH 29.6 pg (27.0-33.0); MCHC 32.5 % (32.0-36.0); MCV 90.9 fL (80-95); Monocytes % 5.8; Neutrophils % 64.9; Nucleated RBC 0 %; Platelet Count 189 10^3/uL (130-400); RBC 4.16 10^6/uL (3.93-5.22); RDW 15.2 % (11.7-14.6); RDW-SD 50.8 fL
[2021-01-07 17:18] LABS: *AMPHETAMINES SCREEN URINE Negative (Negative); *BARBITURATES SCREEN URINE Negative (Negative); *BENZODIAZEPINES SCREEN URINE Negative (Negative); Cannabinoids THC Negative (Negative); Cocaine Screen,Urine Negative (Negative); METHADONE URINE SCREEN Negative (Negative); OPIATES URINE SCREEN Negative (Negative); Tricyclic Antidepressants Negative (Negative)
[2021-01-07 17:19] LABS: ALT 22 U/L (14-59); AST 13 U/L (15-37); Albumin 3.7 g/dL (3.4-5.0); Alkaline Phosphatase 109 U/L (46-116); Anion Gap 6.4 mmol/L (3-11); BUN 18 mg/dL (7-18); Bilirubin, Total 0.4 mg/dL (0.2-1.0); CO2 28.6 mmol/L (21.0-32.0); CREATININE 0.9 mg/dL (0.55-1.02); Chloride 107 mmol/L (98-107); ETHANOL BLOOD 4.3 mg/dL (<3); Glucose 100 mg/dL (74-106); Potassium 3.7 mmol/L (3.5-5.1); Sodium 142 mmol/L (136-145)
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
== END 2021-01-07 19:00 | disposition home or self-care (01) ==
PROVIDERS: Emergency Provider Physician Assistant; PCP Nurse Practitioner Family
DX: F32.9 Major depressive disorder, single episode, unspecified (principal); Z63.5 Disruption of family by separation and divorce; T14.91XA Suicide attempt, initial encounter; X78.0XXA Intentional self-harm by sharp glass, initial encounter
CPT/HCPCS: 36415; 80053; 80307; 99285; 80320; 84443; 85025; 99284

== ENCOUNTER 2021-01-11 18:00 | Emergency (ER) | payer MEDICARE, MEDICAID, SELFPAY ==
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
[2021-01-11 18:22] VITALS: BP 165/94; PULSE 58; RESP 20; TEMP 36.6; O2SAT 96
--- NOTE | 2021-01-11 18:30 | NUR.NOTE ---
pt states that she will not have her blood drawn again or give another urine test Nursing Note:
[2021-01-11 21:00] LABS: Source Nasal/Nares
--- NOTE | 2021-01-11 21:03 | PDOC.MHCN ---
Date of service: 01/11/21 Time of Service: 19:00 Mental Health Crisis Note Presenting Issue How did you arrive at the ED and why did you come: Client was transported to [facility] via LE warrant written by [facility] clinician Jigna Fink 01.11.21. She is seen for assessment via telehealth following medical clearance. Refer to corresponding warrant for additional information. Precipitating Factors The patient presents sitting on top of hospital bed covered by a sheet. She is accompanied by friend Enmanuel. She is fully alert and oriented to time, person, place and global circumstance with no reported deficits in memory. Patient is dispositionally stable, cooperative, and appropriate throughout interaction. Speech is soft, flat tone. Mood reported as I feel inside. with mixed depressed / agitated affect. Concentration and focus intact. Thought process is coherent, no loose associations. Insight is fair, judgment poor. No report or presenting evidence of hallucinations - some delusional thought content present as patient maintains that her statements and recent actions are not indicators of imminent danger to self and that she can remain safe while at the [facility] if 11/11 supervision is provided. Patient denies current SI, states Not at the moment reports intent as subject to the condition as long as I'm at the [facility] I won't do anything. Patient is not willing to discuss specific plan to harm herself and states I haven't decided yet. She denies current HI, intent or plan. Patient admits to completing arrangements, cremation authorization, and signing over bank accounts to her son, however states That's something I could have done anytime. Patient remains insistent that she has been abiding by established safety plan and does not want to be hospitalized. This clinician explained the involuntary process and clarified questions to which patient acknowledged understanding. Disposition BEHAVIOR: Appropriate EYE CONTACT: Fleeting MOOD: I feel inside AFFECT: Depressive / agitated (mild) APPETITE: Patient has not eaten since 9.18 SLEEP(trouble falling/staying asleep: Dysregulated Plan The patient will remain at [facility] on involuntary status pending transfer to in-patient psychiatric setting. The patient will be assessed twice daily by [facility] until placement is secured. If a community support plan can be formulated, including expedited appointments and/or additional appropriate support measures, she may be discharged back to the community per discretionary determination of [facility] and attending medical provider. [facility] have been notified and warrant / EE application have been faxed and requisite admit information forwarded. Additional corresponding documents will be faxed upon completion by [facility]. Referrals faxed to: [facility], [facility], [facility]. Signature Clinician's Name/Title: Landen Fierro [facility] clinician / [facility]
[2021-01-11 23:33] LABS: COVID-19 PCR Negative (Negative)
--- NOTE | 2021-01-12 00:50 | NUR.NOTE ---
Nursing Note: Spoke with Jonathan from [facility], gave update on patient.
[2021-01-12] MEDS: Levothyroxine 125 MCG TAB PO (09:41)
[2021-01-12] MEDS: Gabapentin 400 MG CAP 800 MG PO (09:42)
[2021-01-12] MEDS: Famotidine 20 MG TAB PO (10:49)
--- NOTE | 2021-01-12 11:00 | RT.EKG_ITS ---
APPROVED REPORT Exam: Resting ECG Reason for Exam: [facility] Patient Location: E HR:56 bpm ECG Measurements Heart Rate 56 AXIS ND 205 P 31 QRSd 89 QRS 6 QT 476 T 50 QTc 458 Conclusion Sinus bradycardia...rate< 60 Borderline prolonged ND interval...ND >202, V-rate 50- 90
--- NOTE | 2021-01-12 13:00 | PDOC.MHCN_ITS ---
Date of service: 01/12/21 Time of Service: 09:20 Mental Health Crisis Note Presenting Issue How did you arrive at the ED and why did you come: Client arrived at [facility] via police due to concerns of SI with intent and plan. MIMI Lynn wrote the EE paperwork. Client is currently pending a second certification by a psychiatrist as well referral review. Precipitating Factors Client endorsed SI but no HI at this time. Disposition BEHAVIOR: Client presented as amiable, cooperative and engaging throughout this assessment. EYE CONTACT: Client maintained good eye contact MOOD: Client presented as depressed, withdrawn and hopeless. AFFECT: Client presented affect is congruent with mood APPETITE: Client reported poor appetite and stated: Just the thought of food makes me sick to my stomach. I have only been drinking liquids like juice. Client agreed to have a piece of toast after the assessment. SLEEP(trouble falling/staying asleep: Client reported difficulty falling and staying asleep. Plan Second Certification would occur sometime today but it is unclear the specific time. Client is to remain at [facility] till then and/or till placed. Client will need to be reassessed twice daily till she is placed while on involuntary status. Referrals have been faxed to [facility], [facility] and [facility] and they are pending review as well as bed availability at this time. Signature Clinician's Name/Title: Karina Downing / Emergency Services Clinician, [facility].
--- NOTE | 2021-01-12 13:45 | CMSP_ITS ---
- If Service Date Differs Date of service: 01/12/21 Time of Service: 13:45 Care Management Safety Plan Status: Involuntary - Reason for Wait Reason for Wait: Inpatient Admission INVOLUNTARY FOR INPATIENT PSYCHIATRIC STABILIZATION. CHIEF COMPLAINT: Madhuri is a 60 year old woman with a history of depression. Madhuri was evaluated by [facility] on 01/07/21 and returned home on a safety plan. Madhuri has reportedly not followed through with the agreed upon check-in phone calls. She has also completed her arrangements and signed bank accounts over to her son. Friends became concerned and contacted [facility] and Madhuri was subsequently placed on involuntary status. A huddle is done at approximately 16:[address] Zamora, ED provider, Amaris, Nursing Cashier Receptionist, Rozina RN, and JOÃO Elena. Safety plan has been established to meet the needs of the patient, and consideration of the care team, to adhere to patient goals, identify restrictions based on behavioral status, address nutrition, and determine allowed personal belongings, tools for hygiene and personal care. Determine level of activity including ambulation, level of supervision, visitors, and determine privileges based on behaviors and level of engagement by pt. SAFETY PLAN: 1. Will remain on SI/HI precautions. In Paper Clothes 2. Will remain in room under direct supervision of one-on-one staff at all times provided by CPSO, TREY, SUPERVISOR PRESS ROOM bending machine operator. 3. May have paper cups, plates, finger foods as well as a cardboard spoon 4. Follow [facility] Management of the Admitted Behavioral Health Patient policy. 5. Personal Care: May shower with supervision and at RN discretion. 6. Personal Belongings: Cell phone and IPad at RN discretion. 7. Visitors: Per [facility] visitor policy and at RN discretion. 8. Activities: Soft cart items, coloring book, crayons, music tablet, television if available, and other activities at RN discretion. 9. Bathroom privileges with escort while in the ED. 10. Phone: May use cell phone at RN discretion. 11. Due to INVOLUNTARY status, patient is being held at [facility] by the Department of Mental Health ([facility]) until 2nd certification by [facility] Psychiatrist can be performed (within 24 hours). Staff will provide de-escalation support (CPI) as needed. If patient wishes to leave [facility], staff will contact [facility] Crisis Screener ([phone]) and On-Call Aids Counselor ([phone]) as soon as possible. In the event of elopement, notify [facility] Police ([phone]). Patient is currently involuntarily at [facility]. [facility] Frontline Unionmelt Operator will continue seeking placement. Please contact the Leave Coordinator Aids Counselor ([phone]) for any needed changes to Safety Plan. Safety plan has been provided to interdepartmental care team. Patient will be transported by laborer driver at time of discharge.
[2021-01-12] MEDS: clonazePAM 0.5 MG TAB PO (21:15)
[2021-01-12] MEDS: Celecoxib 100 MG CAP PO (21:15)
[2021-01-12] MEDS: traZODone 100 MG TAB 250 MG PO (21:42)
[2021-01-12] MEDS: Gabapentin 800 MG TAB PO (21:42)
[2021-01-13] MEDS: Levothyroxine 125 MCG TAB PO (06:52)
[2021-01-13 09:50] LABS: Bilirubin Negative (Negative); Blood Trace-intact (Negative); Clarity Clear (Clear); Glucose Negative (Negative); Ketones Negative (Negative); Leukocyte Esterase Negative (Negative); Nitrite Negative (Negative); Specific Gravity 1.025 (1.005-1.025); Urobilinogen 0.2 EU/dL (Up TO 0.2)
[2021-01-13] MEDS: FLUoxetine 20 MG CAP PO ×2 (09:51→09:53)
[2021-01-13] MEDS: Gabapentin 400 MG CAP 800 MG PO (09:51)
[2021-01-13] MEDS: clonazePAM 0.5 MG TAB PO ×3 (09:52→21:26)
[2021-01-13] MEDS: Celecoxib 100 MG CAP PO ×3 (09:52→21:26)
[2021-01-13 09:59] LABS: Bacteria Few HPF (Negative); Epithelial Cells Few HPF (Negative); RBC 0-2 HPF (0-2); WBC 0-2 HPF (0-5)
[2021-01-13 10:00] LABS: C & S Indicated? No; Casts Negative LPF (Negative); Crystals Negative HPF (Negative); Mucus Moderate (Negative)
[2021-01-13] MEDS: Lansoprazole 30 MG CAPCR PO ×2 (10:33→22:37)
[2021-01-13] MEDS: Acetaminophen 500 MG TAB (13:38)
--- NOTE | 2021-01-13 14:51 | PDOC.MHCN ---
Date of service: 01/13/21
[2021-01-13] MEDS: Gabapentin 800 MG TAB PO (21:28)
[2021-01-13] MEDS: traZODone 100 MG TAB 250 MG PO (21:30)
[2021-01-13] MEDS: Acetaminophen 325 MG TAB 650 MG PO (22:00)
--- NOTE | 2021-01-13 22:45 | CMSP_ITS ---
- If Service Date Differs Date of service: 01/13/21 Time of Service: 15:00 Care Management Safety Plan Status: Involuntary - Reason for Wait Reason for Wait: Inpatient Admission CHIEF COMPLAINT: Madhuri is a 60 year old woman with a history of depression. Madhuri was evaluated by [facility] on 01/07/21 and returned home on a safety plan. Madhuri has reportedly not followed through with the agreed upon check-in phone calls. She has also completed her arrangements and signed bank accounts over to her son. Friends became concerned and contacted [facility] and Madhuri was subsequently placed on involuntary status. Safety plan has been established to meet the needs of the patient, and consideration of the care team, to adhere to patient goals, identify restrictions based on behavioral status, address nutrition, and determine allowed personal belongings, tools for hygiene and personal care. Determine level of activity including ambulation, level of supervision, visitors, and determine privileges based on behaviors and level of engagement by pt. SAFETY PLAN: 1. Will remain on SI/HI precautions. In Paper Clothes 2. Will remain in room under direct supervision of one-on-one staff at all times provided by CPSO, DEVELOPMENT EDUCATOR, CARDIOLOGY SPECIALIST director product. 3. May have paper cups, plates, finger foods as well as a cardboard spoon 4. Follow [facility] Management of the Admitted Behavioral Health Patient policy. 5. Personal Care: May shower with supervision and at RN discretion. 6. Personal Belongings: Cell phone and IPad at RN discretion. 7. Visitors: Per [facility] visitor policy and at RN discretion. 8. Activities: Soft cart items, coloring book, crayons, music tablet, television if available, and other activities at RN discretion. 9. Bathroom privileges with escort while in the ED. 10. Phone: May use cell phone at RN discretion. 11. Due to INVOLUNTARY status, patient is being held at [facility] by the Department of Mental Health ([facility]) until 2nd certification by [facility] Psychiatrist can be performed (within 24 hours). Staff will provide de-escalation support (CPI) as needed. If patient wishes to leave [facility], staff will contact [facility] Crisis Screener ([phone]) and On-Call Interior Design Director ([phone]) as soon as possible. In the event of elopement, notify [facility] Police ([phone]). Patient is currently involuntarily at [facility]. [facility] Frontline Video Production Engineer will continue seeking placement. Please contact the Tax Evaluator Interior Design Director ([phone]) for any needed changes to Safety Plan. Safety plan has been provided to interdepartmental care team. Patient will be transported by rd scientist at time of discharge.
--- NOTE | 2021-01-13 22:45 | PDOC.CMSAFED ---
- If Service Date Differs Date of service: 01/13/21 Time of Service: 15:00 Care Management Safety Plan Status: Involuntary - Reason for Wait Reason for Wait: Inpatient Admission CHIEF COMPLAINT: Madhuri is a 60 year old woman with a history of depression. Madhuri was evaluated by [facility] on 01/07/21 and returned home on a safety plan. Madhuri has reportedly not followed through with the agreed upon check-in phone calls. She has also completed her arrangements and signed bank accounts over to her son. Friends became concerned and contacted [facility] and Madhuri was subsequently placed on involuntary status. Safety plan has been established to meet the needs of the patient, and consideration of the care team, to adhere to patient goals, identify restrictions based on behavioral status, address nutrition, and determine allowed personal belongings, tools for hygiene and personal care. Determine level of activity including ambulation, level of supervision, visitors, and determine privileges based on behaviors and level of engagement by pt. SAFETY PLAN: 1. Will remain on SI/HI precautions. In Paper Clothes 2. Will remain in room under direct supervision of one-on-one staff at all times provided by CPSO, OVEREDGE MACHINE OPERATOR, PARARESCUE MANAGER chief librarian branch or department. 3. May have paper cups, plates, finger foods as well as a cardboard spoon 4. Follow [facility] Management of the Admitted Behavioral Health Patient policy. 5. Personal Care: May shower with supervision and at RN discretion. 6. Personal Belongings: Cell phone and IPad at RN discretion. 7. Visitors: Per [facility] visitor policy and at RN discretion. 8. Activities: Soft cart items, coloring book, crayons, music tablet, television if available, and other activities at RN discretion. 9. Bathroom privileges with escort while in the ED. 10. Phone: May use cell phone at RN discretion. 11. Due to INVOLUNTARY status, patient is being held at [facility] by the Department of Mental Health ([facility]) until 2nd certification by [facility] Psychiatrist can be performed (within 24 hours). Staff will provide de-escalation support (CPI) as needed. If patient wishes to leave [facility], staff will contact [facility] Crisis Screener ([phone]) and On-Call Belt Maker Helper ([phone]) as soon as possible. In the event of elopement, notify [facility] Police ([phone]). Patient is currently involuntarily at [facility]. [facility] Frontline Fork Truck Operator will continue seeking placement. Please contact the Clutch Mechanic Belt Maker Helper ([phone]) for any needed changes to Safety Plan. Safety plan has been provided to interdepartmental care team. Patient will be transported by pattern marking supervisor at time of discharge.
--- NOTE | 2021-01-13 22:47 | PDOC.ERCMPRO ---
- If Service Date Differs Date of service: 01/13/21 Time of Service: 10:00 Care Management Progress Note S/O: Madhuri was lying on her stretcher in the ED when CM met with her. She was cooperative and maintained eye contact, answering questions appropriately. Madhuri appeared depressed and teary. She verbalized that she was not happy with being at [facility] and did not feel that she was kept informed of the plan for her care. She acknowledged that she had had a zoom meeting with a psychiatrist last evening but was not told the outcome of the meeting or the consequences. JOÃO explained the process of a second certification and informed Madhuri that she was now in involuntary status and would be placed in a psychiatric facility for treatment. She understood that she could not leave and expressed concern about upcoming appointments that would need to be cancelled. CM assured her that she would be assisted with making those arrangements if still at [facility] at the start of the business week. Madhuri has been cooperative and compliant since her arrival. A: Madhuri is a 60 year old woman who presented to [facility] ED on 01/12/21 with suicidal ideation. P:Madhuri is awaiting involuntary placement in a psychiatric facility. Referrals have been sent to a number of hospitals but no bed are available. [facility] continues to review her information and hopefully will male a determination tomorrow. - Status Status: Involuntary - Reason for Wait Reason for Wait: Inpatient Admission
[2021-01-14] MEDS: Levothyroxine 125 MCG TAB PO (07:50)
[2021-01-14] MEDS: Lansoprazole 30 MG CAPCR PO ×2 (07:50→22:13)
[2021-01-14] MEDS: clonazePAM 0.5 MG TAB PO ×3 (08:30→22:12)
[2021-01-14] MEDS: Celecoxib 100 MG CAP PO ×2 (08:31→22:11)
[2021-01-14] MEDS: FLUoxetine 20 MG CAP PO (08:31)
[2021-01-14] MEDS: Gabapentin 400 MG CAP PO (08:32)
--- NOTE | 2021-01-14 11:56 | PDOC.MHCN ---
Date of service: 01/14/21 Time of Service: 11:56 Mental Health Crisis Note Presenting Issue How did you arrive at the ED and why did you come: Client arrived via [facility] on 01/11/21 after warrant was executed by ES worker Jigna Lynn. Client is seen today for check-in assessment while awaiting involuntary hospitalization. Precipitating Factors Client denies SI/HI with no plan or intent at this time. On 01/11 client finalized her cremation arrangements and drained her bank account and signed it over to her brother. Disposition BEHAVIOR: Client is sitting up in bed dressed in proper paper hospital attire when this job specification writer arrives via zoom. Client is engaging with CPSO playing a card game. Client engages with this job specification writer answering all of the questions that are being asked of her. This job specification writer asked client on a scale of 0-10 with 0 being that she would be safe if she was to leave the hospital and 10 being that she would find a way to harm herself she rated herself a 2. EYE CONTACT: Client makes good eye contact with this job specification writer. MOOD: Clients mood appears to be depressed. AFFECT: Flat affect APPETITE: Client states that she has been forcing herself to eat since being at the hospital. Client states that when she eats she gets sharp pains in her stomach. SLEEP(trouble falling/staying asleep: Client states that last night she slept the best since she has been at the hospital. Plan Updated EE paperwork and notes sent to [facility]. All other hospitals called with no bed availability. Client will remain at [facility] ED awaiting placement or until a suitable safety plan can be made. Updated safety plan with ED staff and provider. Signature Clinician's Name/Title: Courtney Morton, [facility] Emergency Clinician
--- NOTE | 2021-01-14 14:38 | NUR.NOTE ---
Nursing Note: 01/14/21 1438- pt has visitor per primary RN.
--- NOTE | 2021-01-14 16:46 | CMPROGNOTE_ITS ---
- If Service Date Differs Date of service: 01/14/21 Time of Service: 16:46 Care Management Progress Note S/O: Madhuri was moved to the new room in the ED which was carved out from the waiting area. The room has a window and a recliner vs a bed and she expressed being very pleased with the change. This is luxury. Madhuri requested the use of a fork with which to eat her salad. After consultation with staff, this was added to her safety plan - at nursing discretion. Care must be taken to retrieve the fork immediately after meals. Madhuri admits to being frightened to go to a psychiatric hospital. She has requested [facility] since it is closest to home for her. Both [facility] and CM explained that she would be going to the first bed offered. If there were several open concurrently (not likely) her request would be considered. A: Madhuri is a 60 year old woman who presented to [facility] ED on 01/12/21 with suicidal ideation. P:Madhuri is awaiting involuntary placement in a psychiatric facility. Referrals have been sent to a number of hospitals but no bed are available. [facility] continues to review her information and hopefully will male a determination tomorrow. - Status Status: Involuntary - Reason for Wait Reason for Wait: Inpatient Admission
--- NOTE | 2021-01-14 16:46 | PDOC.CMSAFED ---
- If Service Date Differs Date of service: 01/14/21 Time of Service: 16:46 Care Management Safety Plan Status: Involuntary - Reason for Wait Reason for Wait: Inpatient Admission Safety plan has been established to meet the needs of the patient, and consideration of the care team, to adhere to patient goals, identify restrictions based on behavioral status, address nutrition, and determine allowed personal belongings, tools for hygiene and personal care. Determine level of activity including ambulation, level of supervision, visitors, and determine privileges based on behaviors and level of engagement by pt. SAFETY PLAN: 1. Will remain on SI/HI precautions. In Paper Clothes 2. Will remain in room under direct supervision of one-on-one staff at all times provided by CPSO, ACUTE DIALYSIS REGISTERED NURSE, FUEL AGENT top inventory control executive. 3. May have paper cups, plates, finger foods as well as a cardboard spoon. Madhuri may use a fork for meals, at nursing discretion, but it must be given to her by staff and retrieved by staff immediately after use. 4. Follow [facility] Management of the Admitted Behavioral Health Patient policy. 5. Personal Care: May shower with supervision and at RN discretion. 6. Personal Belongings: Cell phone and IPad at RN discretion. 7. Visitors: Per [facility] visitor policy and at RN discretion. 8. Activities: Soft cart items, coloring book, crayons, music tablet, television if available, and other activities at RN discretion. 9. Bathroom privileges with escort while in the ED. 10. Phone: May use cell phone at RN discretion. 11. Due to INVOLUNTARY status, patient is being held at [facility] by the Department of Mental Health ([facility]) until 2nd certification by [facility] Psychiatrist can be performed (within 24 hours). Staff will provide de-escalation support (CPI) as needed. If patient wishes to leave [facility], staff will contact [facility] Crisis Screener ([phone]) and On-Call Acquisitions Librarian ([phone]) as soon as possible. In the event of elopement, notify [place] [employer] Police ([phone]). Patient is currently involuntarily at [facility]. [facility] Frontline School Janitor will continue seeking placement. Please contact the Molding Line Operator Acquisitions Librarian ([phone]) for any needed changes to Safety Plan. Safety plan has been provided to interdepartmental care team. Patient will be transported by steel spar operator at time of discharge.
--- NOTE | 2021-01-14 20:12 | PDOC.MHCN_ITS ---
Date of service: 01/14/21 Time of Service: 16:40 Mental Health Crisis Note Presenting Issue How did you arrive at the ED and why did you come: Patient is waiting in the ED at [facility] on an EE warrant. Today's visit is a followup as required. Precipitating Factors She denies any Si/HI and is very happy about being moved to a room where she can look out the window. She is alert and answers questions agreeably. Disposition BEHAVIOR: calm and coooperative EYE CONTACT: good eye contact on the screen MOOD: dysphoric AFFECT: congruent to mood APPETITE: not able to eat much but eating since she has been in the hospital SLEEP(trouble falling/staying asleep: never sleeps much Plan She will continue to wait for placement to help her recover. Signature Clinician's Name/Title: Noelle Walker, [facility], [facility] Emergency Services After Hours Clinician
[2021-01-14 21:45] VITALS: BP 150/86; PULSE 56; RESP 18; O2SAT 94
[2021-01-14] MEDS: Gabapentin 800 MG TAB PO (22:12)
[2021-01-14] MEDS: traZODone 100 MG TAB 250 MG PO (22:13)
[2021-01-15] MEDS: clonazePAM 0.5 MG TAB PO ×3 (08:48→20:36)
[2021-01-15] MEDS: Lansoprazole 30 MG CAPCR PO ×3 (08:49→20:58)
[2021-01-15] MEDS: Celecoxib 100 MG CAP PO ×2 (08:49→20:57)
[2021-01-15] MEDS: FLUoxetine 20 MG CAP PO (08:50)
[2021-01-15] MEDS: Gabapentin 400 MG CAP PO (08:50)
[2021-01-15] MEDS: Levothyroxine 125 MCG TAB PO (08:51)
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
[2021-01-15] MEDS: Acetaminophen 325 MG TAB 650 MG PO (14:36)
--- NOTE | 2021-01-15 14:58 | CMSP_ITS ---
- If Service Date Differs Date of service: 01/15/21 Time of Service: 14:58 Care Management Safety Plan Status: Involuntary - Reason for Wait Reason for Wait: Inpatient Admission Safety plan has been established to meet the needs of the patient, and consideration of the care team, to adhere to patient goals, identify restrictions based on behavioral status, address nutrition, and determine allowed personal belongings, tools for hygiene and personal care. Determine level of activity including ambulation, level of supervision, visitors, and determine privileges based on behaviors and level of engagement by pt. SAFETY PLAN: 1. Will remain on SI/HI precautions. In Paper Clothes 2. Will remain in room under direct supervision of one-on-one staff at all times provided by CPSO, NEWSPAPER DELIVERER, SAFETY COUNCIL DIRECTOR forming process worker. 3. May have paper cups, plates, finger foods as well as a cardboard spoon. Madhuri may use a fork for meals, at nursing discretion, but it must be given to her by staff and retrieved by staff immediately after use. 4. Follow [facility] Management of the Admitted Behavioral Health Patient policy. 5. Personal Care: May shower with supervision and at RN discretion. 6. Personal Belongings: Cell phone and IPad at RN discretion. 7. Visitors: Per [facility] visitor policy and at RN discretion. 8. Activities: Soft cart items, coloring book, crayons, music tablet, television if available, and other activities at RN discretion. 9. Bathroom privileges with escort while in the ED. 10. Phone: May use cell phone at RN discretion. 11. Due to INVOLUNTARY status, patient is being held at [facility] by the Department of Mental Health ([facility]). A 2nd certification by [facility] Psychiatrist done on 01/12/21 upheld the EE. Staff will provide de-escalation support (CPI) as needed. If patient wishes to leave [facility], staff will contact [facility] Crisis Screener ([phone]) and On-Call Audiovisual Technician ([phone]) as soon as possible. In the event of elopement, notify [employer] Police ([phone]). Patient is currently involuntarily at [facility]. [facility] Frontline Pharmacy General Manager will continue seeking placement. Please contact the Long Term Audiovisual Technician ([phone]) for any needed changes to Safety Plan. Safety plan has been provided to interdepartmental care team. Patient will be transported by lobster catcher at time of discharge.
--- NOTE | 2021-01-15 14:58 | PDOC.CMSAFED ---
- If Service Date Differs Date of service: 01/15/21 Time of Service: 14:58 Care Management Safety Plan Status: Involuntary - Reason for Wait Reason for Wait: Inpatient Admission Safety plan has been established to meet the needs of the patient, and consideration of the care team, to adhere to patient goals, identify restrictions based on behavioral status, address nutrition, and determine allowed personal belongings, tools for hygiene and personal care. Determine level of activity including ambulation, level of supervision, visitors, and determine privileges based on behaviors and level of engagement by pt. SAFETY PLAN: 1. Will remain on SI/HI precautions. In Paper Clothes 2. Will remain in room under direct supervision of one-on-one staff at all times provided by CPSO, OPERATIONS LIAISON, BIOMEDICAL INSTRUMENT TECHNICIAN manifest/order organizer print orders. 3. May have paper cups, plates, finger foods as well as a cardboard spoon. Madhuri may use a fork for meals, at nursing discretion, but it must be given to her by staff and retrieved by staff immediately after use. 4. Follow [facility] Management of the Admitted Behavioral Health Patient policy. 5. Personal Care: May shower with supervision and at RN discretion. 6. Personal Belongings: Cell phone and IPad at RN discretion. 7. Visitors: Per [facility] visitor policy and at RN discretion. 8. Activities: Soft cart items, coloring book, crayons, music tablet, television if available, and other activities at RN discretion. 9. Bathroom privileges with escort while in the ED. 10. Phone: May use cell phone at RN discretion. 11. Due to INVOLUNTARY status, patient is being held at [facility] by the Department of Mental Health ([facility]). A 2nd certification by [facility] Psychiatrist done on 01/12/21 upheld the EE. Staff will provide de-escalation support (CPI) as needed. If patient wishes to leave [facility], staff will contact [facility] Crisis Screener ([phone]) and On-Call Property And Equipment Clerk ([phone]) as soon as possible. In the event of elopement, notify [place] [employer] Police ([phone]). Patient is currently involuntarily at [facility]. [facility] Frontline Book Sorter will continue seeking placement. Please contact the Laminator Printed Circuit Boards Property And Equipment Clerk ([phone]) for any needed changes to Safety Plan. Safety plan has been provided to interdepartmental care team. Patient will be transported by service electrician at time of discharge.
--- NOTE | 2021-01-15 16:38 | PDOC.MHCN_ITS ---
Date of service: 01/15/21 Time of Service: 09:35 Mental Health Crisis Note Presenting Issue How did you arrive at the ED and why did you come: Client was transported to [facility] via LE warrant written by [facility] clinician Jigna Lynn 01.11.21. She is seen today for planned reassessment via telehealth. Precipitating Factors The patient presents lying down on hospital bed. She is fully alert and oriented to time, person, place and global circumstance with no deficits in memory noted. Attitude is conversational and appropriate throughout assessment with good eye contact. Speech is coherent, soft, flat tone. She reports feeling Good, a little tired today with mildly depressed / flat affect. Appetite intact and eating regular meals, mild sleep dysregulation. Thought process is coherent and linear. Insight and judgment fair. No evidence of leida or psychosis. She denies current SI/HI/SIB, intent or plan, states I'm feeling very sad. I wish things could be different but I guess I need to work on it. She comments on interacting with her son and granddaughter over the weekend and reports that it went well. She expresses concerns over maintaining employment and ability to pay for hospital. Updated patient on placement status and reviewed with wound care specialist. Disposition BEHAVIOR: Appropriate EYE CONTACT: Good MOOD: Good, a little tired. AFFECT: depressed / flat APPETITE: No reported issues SLEEP(trouble falling/staying asleep: Difficulties sleeping on hospital bed. Plan The patient will remain at [facility] on involuntary status pending transfer to in- patient psychiatric setting. The patient will be assessed twice daily by [facility] until placement is secured. If a community support plan can be formulated, including expedited appointments and/or additional appropriate support measures, she may be discharged back to the community per discretionary determination of [facility] and attending medical provider. No current capacity ([facility], [facility] [place] still under review are requesting to check back tomorrow 01.16. Updated labs / referral faxed to [facility] Signature Clinician's Name/Title: Landen Fierro, [facility] clinician / HP
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
[2021-01-15 18:08] VITALS: BP 115/74; PULSE 56; RESP 15; TEMP 36.7; O2SAT 96
--- NOTE | 2021-01-15 19:35 | NUR.NOTE ---
Nursing Note: pt on ipad with angelo from [facility]
[2021-01-15 20:10] VITALS: BP 134/73; PULSE 54; RESP 16; TEMP 36.6; O2SAT 94
[2021-01-15] MEDS: traZODone 100 MG TAB 250 MG PO (20:57)
[2021-01-15] MEDS: Gabapentin 800 MG TAB PO (20:58)
[2021-01-16] MEDS: Lansoprazole 30 MG CAPCR PO (08:34)
[2021-01-16] MEDS: Celecoxib 100 MG CAP PO (08:34)
[2021-01-16] MEDS: clonazePAM 0.5 MG TAB PO (08:34)
[2021-01-16] MEDS: Levothyroxine 125 MCG TAB PO (08:34)
[2021-01-16] MEDS: Gabapentin 400 MG CAP PO (08:34)
[2021-01-16] MEDS: FLUoxetine 20 MG CAP PO (08:52)
--- NOTE | 2021-01-16 09:18 | NUR.NOTE ---
Gave report to Evangelina at [facility]. [place]. Waiting for car wash manager to arrive to transport.
--- NOTE | 2021-01-16 09:39 | CMPROGNOTE_ITS ---
- If Service Date Differs Date of service: 01/16/21 Time of Service: 09:39 Care Management Progress Note DISCHARGE PLAN: Madhuri is accepted for admission at [facility]. [facility] provide transport. Upon discharge from the [facility], Madhuri will follow up with her PCP, [facility], and discharge plan of care as directed.
== END 2021-01-16 10:11 | disposition short-term general hospital (02) ==
PROVIDERS: Physician Assistant; Emergency Provider Emergency Medicine; PCP Nurse Practitioner Family
DX: F41.8 Other specified anxiety disorders (principal); R45.851 Suicidal ideations; Z75.1 Person awaiting admission to adequate facility elsewhere; Z20.822 Contact with and (suspected) exposure to COVID-19; Z03.818 Encounter for observation for suspected exposure to other biological agents ruled out
CPT/HCPCS: 87635; 93005; 99285; 81003; 81015; 84443; 93010